=== PATIENT | male | born 1970 | race Caucasian/White ===

== ENCOUNTER 2017-10-23 19:38 | Emergency (ER) | payer OTHER ==
[~2017-10-23] VITALS: Ht 175.3 cm; Wt 79.4 kg
[2017-10-23 20:48] VITALS: Ht 175.3 cm; Wt 79.4 kg
[2017-10-23 22:39] VITALS: BP 140/86
== END 2017-10-23 22:39 | disposition home or self-care (01) ==
LOC: ED 19:38
DX: K08.89 Other specified disorders of teeth and supporting structures (principal)
CPT/HCPCS: J1885

== ENCOUNTER 2020-04-17 10:39 | Emergency (ER) | payer BC ==
[~2020-04-17] VITALS: Ht 172.7 cm; Wt 81.2 kg
[2020-04-17 10:52] VITALS: Ht 172.7 cm; Wt 81.2 kg
[2020-04-17 12:36] LABS: BASOPHIL % 1.5 % (0-2); PLATELET COUNT 229 x10^3mcL (130-400)
[2020-04-17 12:37] LABS: RED CELL DISTRIBUTION WIDTH 11.4 % (11.5-14.5)
[2020-04-17 13:05] LABS: CALCIUM 8.8 mg/dL (8.5-10.1); CARBON DIOXIDE 29.8 mmol/L (21-32); CREATININE SERUM 1.7 mg/dL (0.7-1.3); POTASSIUM SERUM 4.6 mmol/L (3.5-5.1)
[2020-04-17 13:09] LABS: BILIRUBIN TOTAL 0.91 mg/dL (0.20-1.00); C REACTIVE PROTEIN 1.3 mg/dL (<=0.9); TOTAL PROTEIN, SERUM 7.4 g/dL (6.4-8.2)
[2020-04-17 14:19] VITALS: BP 133/81
== END 2020-04-17 14:19 | disposition home or self-care (01) ==
LOC: ED 10:39
PROVIDERS: Emergency Medicine
DX: R59.1 Generalized enlarged lymph nodes (principal); F17.210 Nicotine dependence, cigarettes, uncomplicated; K57.90 Diverticulosis of intestine, part unspecified, without perforation or abscess without bleeding; L30.9 Dermatitis, unspecified
CPT/HCPCS: 99406